=== PATIENT | female | born 1995 | race Caucasian/White ===

== ENCOUNTER 2017-12-11 17:39 | Inpatient (IN) ==
[2017-12-11] MEDS ORDERED: CALCIUM CARBONATE Chewable 500mg TABLET PO PRN (19:13)
[2017-12-11] MEDS ORDERED: ACETAMINOPHEN 500 MG TABLET PO PRN (19:13)
[2017-12-11] MEDS ORDERED: METHYLERGONOVINE 0.2 MG/ML INJECTION IM PRN (19:13)
[2017-12-11] MEDS ORDERED: MAG-AL + SIM ORAL LIQUID 30ml PO PRN (19:13)
[2017-12-11] MEDS ORDERED: CARBOPROST 250 MCG/ML INJECTION IM PRN (19:13)
[2017-12-11 19:35] VITALS: BMI 25.7
[2017-12-11] MEDS ORDERED: SALINE FLUSH 10ml SYRINGE IV PRN (20:00)
[2017-12-11] MEDS ORDERED: ZOLPIDEM 5 MG TABLET PO PRN (20:00)
[2017-12-11] MEDS ORDERED: HYDROCODONE/APAP 5mg/325mg TABLET PO PRN (20:00)
[2017-12-11] MEDS ORDERED: OXYTOCIN DRIP 30 UNIT/500 ML ML IV PRN ×2 (20:03→22:00)
[2017-12-11] MEDS ORDERED: ZOLPIDEM 10 MG TABLET PO PRN (20:05)
--- NOTE | 2017-12-11 20:08 | Progress Note ---
OB PP Progress Note Free Text - Date Date: 12/11/17 - Progress Note Progress Note: العلي bulb placed through cervix without difficulty, clear fluid return. Discussed AROM with pt, Dr Forbes notified. Cervix 50%/-3. Q&A
[2017-12-11] MEDS ORDERED: AMPICILLIN 2 GM in NS 100 ML IV ONE (21:04)
[2017-12-11] MEDS: LR 1,000 ML IV PRN (21:16)
[2017-12-11] MEDS: D5LR 1,000 ML IV PRN (22:12)
[2017-12-12] MEDS: AMPICILLIN 1 GM in NS 100 ML IV SCH ×2 (01:22→05:12)
[2017-12-12] MEDS: LR 1,000 ML IV PRN ×3 (01:23→12:45)
[2017-12-12] MEDS ORDERED: ONDANSETRON 4 MG/2 ML INJECTION IVP PRN ×2 (07:53→17:28)
[2017-12-12] MEDS ORDERED: NALOXONE 0.4 MG/ML INJECTION IVP PRN (07:53)
[2017-12-12] MEDS ORDERED: ROPIVACAINE 1% 10MG/ML INJ 200 MG, SUFentanil 50 MCG in NS 100 ML EPI PRN (07:53)
[2017-12-12] MEDS ORDERED: DiphenhydrAMINE 50 MG/ML INJECTION IVP PRN (07:53)
--- NOTE | 2017-12-12 07:53 | Anesthesia Preoperative Report ---
Anesthesia Epidural/Spinal Rec - Date and Time Date: 12/12/17 Preoperative Diagnosis: preeclampsia Procedure: Labor Epidural Plan: Epidural - Vital Signs Vital Signs: Temperature 98.2 F 12/11/17 19:12 Pulse Rate 114 H 12/11/17 19:12 Respiratory Rate 20 12/11/17 19:12 Blood Pressure 136/91 H 12/11/17 19:12 Pulse Oximetry 99 12/11/17 19:12 /Para: P:0 - Medictaions & Allergies Inpatient Medications: Current Medications Acetaminophen (Tylenol) 500 - 1,000 mg PO Q4H PRN PRN Reason: Pain Hydrocodone Bitart/Acetaminophen (Seffner 5/325) 1 - 2 tab PO Q4H PRN PRN Reason: Pain Al Hydroxide/Mg Hydroxide (Maalox Plus) 30 ml PO Q3H PRN PRN Reason: Indigestion Calcium Carbonate (Tums) 500 - 1,000 mg PO Q2H PRN PRN Reason: Indigestion Carboprost Tromethamine (Hemabate) 250 mcg IM O PRN PRN Reason: .Downtime Lactated Ringer's (Lactated Ringers) 1,000 mls @ 999 mls/hr IV .Q1H1M PRN Last Admin: 12/12/17 06:55 Dose: 999 mls/hr Dextrose/Lactated Ringer's (Dextrose 5%-Lactated Ringers) 1,000 mls @ 125 mls/ hr IV .Q8H PRN PRN Reason: Labor Last Admin: 12/11/17 22:12 Dose: 125 mls/hr Ampicillin Sodium 1 gm/ Sodium (Chloride) 100 mls @ 200 mls/hr IV Q4H EMILI Last Admin: 12/12/17 05:12 Dose: 200 mls/hr Oxytocin (Pitocin Drip) 30 unit in 500 mls @ 2 mls/hr IV .Q24H PRN; Protocol PRN Reason: Induction/Augmentation Last Admin: 12/11/17 22:11 Dose: 2 mls/hr Methylergonovine Maleate (Methergine) 0.2 mg IM O PRN Misoprostol (Cytotec) 800 mcg VA ONCE PRN Sodium Chloride (Iv Flush) 10 - 80 ml IV PRN PRN PRN Reason: Flushing Zolpidem Tartrate (Ambien) 10 mg PO HS PRN PRN Reason: Insomnia Allergies/Adverse Reactions: Allergies Allergy/AdvReac Type Severity Reaction Status Date / Time No Known Allergies Allergy Unverified 12/30/11 16:51 - Home Medications Home Medications: Home Medications Medication Instructions Recorded Confirmed Type No Known Medications #0 12/30/11 History - Medical History Other History: Reports: Now - Surgical History Anesthesia Reactions: None Hx Family Anesthesia Reaction: No History of Motion Sickness: No - Social History Smoking Status: Never smoker Second Hand Exposure: No Substance Use Type: does not use Alcohol Intake Frequency: does not drink - Pertinent Findings Lab Data: CBC and BMP 12/11/17 19:29 12/11/17 19:29 BMP 12/11/17 19:29 Sodium 138 Potassium 3.7 Chloride 105 Carbon Dioxide 21 L BUN 9.0 Creatinine 0.5 L Glucose 100 Calcium 10.0 Liver Function 12/11/17 Range/Units 19:29 Total Bilirubin 0.80 (0.20-1.30) MG/DL AST 25 (14-36) U/L ALT 14 (1-35) U/L Alkaline Phosphatase 202 H (38-126) U/L Albumin 4.2 (3.5-5.0) g/dL EKG Rhythm: Normal Sinus Rhythm - Physical Exam Respiratory Exam: lungs clear Cardiovascular Exam: regular rate and rhythm - Airway Assessment Mallampati Score: II TMD: 3 Fingerbreadths Neck Extension: good Overall Assessment: no airway concerns - ASA ASA Score: 2 - Discussion Discussion: Discussed risks/options/alternatives of anesthesia and questions answered. Patient consents. Nursing pain assessment noted. Anesthesia Discussion: spouse Attestation Statement: Prior to the delivery of any anesthetic medication, I examined the patient, developed the plan, obtained the patient's consent and discussed the risk and benefits of the procedure with the patient/guardian.
[2017-12-12] MEDS: D5LR 1,000 ML IV PRN (08:23)
--- NOTE | 2017-12-12 12:40 | OB/GYN Progress Note ---
- Pain Control Pain control: Epidural - Pelvic Exam Dilation (cm): 4 Effacement (%): 60 station: -4 Amniotic membrane status: Ruptured Comments: Has been 4-5 cm since FB was removed. - Contractions Monitor mode: Internal Contraction pattern: Regular Contraction intensity: Moderate - Status status: Category ll Comments: Recurrent variable decelerations. Amnioinfusion started with resolution of variables with every contractions. - Assessment and Plan Assessment: induction ongoing Plan: continuous present management (Discussed Variables and cat 2 FHT will attempt to resolve and increase MVUs to move to delivery. Discussed if Cat 2 strip continues will proceed with PLTCS. Discussed R/B/A to procedure, questions elicted and answered. )
[2017-12-12] MEDS ORDERED: AZITHROMYCIN IV 500 MG in NS 250ml 250 ML IV ONE (12:49)
[2017-12-12] MEDS ORDERED: CITRIC ACID/SODIUM CITRATE 30ml PO ONE (12:49)
[2017-12-12] MEDS ORDERED: FAMOTIDINE PB 20 MG/50 ML BAG IV ONE (12:49)
[2017-12-12] MEDS ORDERED: CEFAZOLIN PREMIX (MC ONLY) 2 GM/50 ML BAG IV ONE (12:49)
[2017-12-12] MEDS ORDERED: NS 1,000 ML IR ONE (13:00)
[2017-12-12] MEDS ORDERED: SALINE FLUSH 10ml SYRINGE ONE (13:00)
[2017-12-12] MEDS ORDERED: PHENYLEPHRINE INJ 10 MG/ML VIAL IV ONE (13:00)
[2017-12-12] MEDS ORDERED: ONDANSETRON 4 MG/2 ML INJECTION ONE (13:01)
[2017-12-12] MEDS ORDERED: MORPHINE SULFATE PF 5mg/10ml INJ (Duramorph) ONE (13:33)
[2017-12-12] MEDS ORDERED: FentaNYL 250 MCG/5 ML INJECTION ONE (13:35)
[2017-12-12] MEDS ORDERED: BUPIVACAINE 0.75%/DEXTROSE 8.5% SPINAL 2 ML AMPULE IJ ONE (13:36)
[2017-12-12] MEDS: OXYTOCIN BOLUS BAG 30 UNIT/500 ML ML IV SCH ×2 (14:02→14:29)
[2017-12-12] MEDS ORDERED: SALINE FLUSH 10ml SYRINGE IV PRN (17:25)
[2017-12-12] MEDS ORDERED: CALCIUM CARBONATE Chewable 500mg TABLET PO PRN (17:25)
[2017-12-12] MEDS ORDERED: HYDROCORTISONE 2.5% CREAM 30gm RECTALLY PRN (17:25)
[2017-12-12] MEDS ORDERED: DiphenhydrAMINE 25 MG CAPSULE PO PRN (17:25)
[2017-12-12] MEDS ORDERED: ACETAMINOPHEN 500 MG TABLET PO PRN (17:25)
[2017-12-12] MEDS ORDERED: SIMETHICONE 80 MG CHEWABLE TABLET PO PRN (17:25)
[2017-12-12] MEDS ORDERED: D5LR 1,000 ML IV SCH (17:30)
[2017-12-12] MEDS ORDERED: OXYTOCIN DRIP 30 UNIT/500 ML ML IV SCH (17:30)
--- NOTE | 2017-12-12 18:03 | Anesthesia Postoperative Note ---
- Date and Time Date: 12/12/17 Time: 18:02 - Status Patient Participated in Evaluation: Patient Participated in Person Vital Signs: Temperature 98.2 F 12/11/17 19:12 Pulse Rate 114 H 12/11/17 19:12 Respiratory Rate 20 12/11/17 19:12 Blood Pressure 136/91 H 12/11/17 19:12 Pulse Oximetry 99 12/11/17 19:12 Respiratory Function: Airway Patent Cardiovascular Function: Regular Pulse Mental Status: Alert and Oriented Pain Intensity: 0 Hydration: Taking PO Fluids Complications During Recover: None Apparent - Follow-Up Instructions Instructions: Per Surgeon
--- NOTE | 2017-12-12 18:16 | Operative Note ---
Operative Note - Date of Operation Date of Operation: 12/12/17 - General : 1 Estimated or Known Gestational Age (weeks): 37 - Preoperative Diagnosis Nonreassuring FHT (Recuurent variable decelerations), Gestational Hypertension ( Preeclampsia) - Postoperative Diagnosis Postoperative Diagnosis: Same - Procedure Primary, Low-transverse - Surgeon Surgeon: Micheal Forbes DO - Day Care Assistant OB Day Care Assistant: Federica Araujo MD - Anesthesia Anesthesia Provider: Juan C Newman CRNA Anesthesia Type: Combined Spinal/Epidural - Estimated Blood Loss Estimated Blood Loss:: 700 - Findings Findings: viable female (Pam) - APGARS : 9 - [place] Weight Weight (grams): 3002 - Indications Indications: Nonreasuring FHT - Description of Procedure Description of Procedure: See dictation
[2017-12-12] MEDS: IBUPROFEN 800 MG TABLET PO PRN (18:57)
[2017-12-12] MEDS: SIMETHICONE 80 MG CHEWABLE TABLET PO SCH ×2 (18:57→23:25)
[2017-12-12] MEDS: HYDROCODONE/APAP 5mg/325mg TABLET PO PRN (22:42)
[2017-12-13] MEDS: IBUPROFEN 800 MG TABLET PO PRN ×3 (05:23→21:45)
[2017-12-13] MEDS: HYDROCODONE/APAP 5mg/325mg TABLET PO PRN ×5 (05:23→21:46)
[2017-12-13] MEDS: DOCUSATE CALCIUM 240 MG CAPSULE PO SCH (08:20)
[2017-12-13] MEDS: SIMETHICONE 80 MG CHEWABLE TABLET PO SCH ×5 (08:20→21:46)
[2017-12-13] MEDS: AMPICILLIN 1 GM in NS 100 ML IV SCH (08:50)
--- NOTE | 2017-12-13 09:03 | OB/GYN Progress Note ---
OB-PP Progress Note - General PPD1 POD:: POD1 Maternal Group B Strep: Positive Maternal blood type: A- Maternal Rubella Status: Immune - Subjective Date: 12/13/17 Lochia: Minimal Pain: controlled Voiding: voiding - Objective Vital Signs: Last Vital Signs Temp 97.6 F 12/13/17 08:00 Pulse 86 12/13/17 08:00 Resp 16 12/13/17 08:00 BP 124/81 12/13/17 08:00 Pulse Ox 98 12/13/17 08:00 Urine Output: good General: alert and oriented Cardiovascular: regular rate,rhythm Respiratory: non-labored Abdomen: fundus firm Incision: normal, clean, dry, intact Extremities: non-tender Laboratory: Laboratory Results - last 24 hr 12/12/17 12/12/17 14:37 20:47 WBC 11.1 H D RBC 4.18 Hgb 11.9 L Hct 35.9 L MCV 85.9 MCH 28.5 MCHC 33.1 RDW Std Deviation 51.0 H Plt Count 214 MPV 10.1 Immature Gran % (Auto) 0.4 Neut % (Auto) 73.5 H Lymph % (Auto) 15.9 L Pettis % (Auto) 10.0 H Eos % (Auto) 0.1 Baso % (Auto) 0.1 Neut # (Auto) 8.2 H Lymph # (Auto) 1.8 Pettis # (Auto) 1.1 H Eos # (Auto) 0.0 Baso # (Auto) 0.0 Abs Immat Gran (auto) 0.04 H RhIG Candidate? Not a candidate - Assessment Assessment: SP, Primary C/S, Preeclampsia - Plan Plan: routine care
[2017-12-14 01:02] VITALS: RESP 16
[2017-12-14] MEDS: HYDROCODONE/APAP 5mg/325mg TABLET PO PRN ×2 (04:59→10:46)
--- NOTE | 2017-12-14 08:43 | OB/GYN Progress Note ---
OB-PP Progress Note - General PPD2 Maternal Group B Strep: Positive Maternal blood type: A- Maternal Rubella Status: Immune - Subjective Date: 12/14/17 Lochia: Minimal Pain: controlled Voiding: voiding - Objective Vital Signs: Last Vital Signs Temp 98.1 F 12/14/17 04:50 Pulse 75 12/14/17 04:50 Resp 16 12/14/17 04:50 BP 123/63 12/14/17 04:50 Pulse Ox 98 12/14/17 04:50 General: alert and oriented Abdomen: fundus firm, non-tender Incision: normal, clean, dry, intact Extremities: non-tender - Assessment Assessment: Primary C/S, Preeclampsia - Plan Plan: routine care, discharge home, continue PNV
[2017-12-14] MEDS: DOCUSATE CALCIUM 240 MG CAPSULE PO SCH (10:41)
[2017-12-14] MEDS: SIMETHICONE 80 MG CHEWABLE TABLET PO SCH (10:42)
[2017-12-14] MEDS: IBUPROFEN 800 MG TABLET PO PRN (10:42)
[2017-12-14 13:37] VITALS: BP 125/79; PULSE 80; TEMP 97.7; O2SAT 97
--- NOTE | 2017-12-14 14:14 | Anesthesia Postoperative Note ---
- Date and Time Date: 12/14/17 Time: 14:05 - Status Patient Participated in Evaluation: Patient Participated in Person Vital Signs: Temperature 97.7 F 12/14/17 13:00 Pulse Rate 80 12/14/17 13:00 Respiratory Rate 16 12/14/17 13:00 Blood Pressure 125/79 12/14/17 13:00 Pulse Oximetry 97 12/14/17 13:00 Respiratory Function: Airway Patent Cardiovascular Function: Regular Pulse Mental Status: Alert and Oriented Pain Intensity: 3 Hydration: Taking PO Fluids Complications During Recover: None Apparent Post Anesthesia Care Notes: Patient will be discharged today per Dr. Araujo. Pt does complain of headache when standing that subsides once she returns to supine position. Currently she is setting up in bed during assessment. She denies N/V or sensitivity to light. Pt did have epidural for labor placed with 17 gauge needle without difficulty and SAB for c section later that day done with 22 gauge needle. Discussed with patient and possible post dural puncture headache along with conservative and blood patch treatment. Pt refuses blood patch at this time. She also verbalized her understanding stay orally hydrated, increase caffeine intake and to rest once home. - Follow-Up Instructions Instructions: Per Surgeon
--- NOTE | 2017-12-19 15:10 | Operative Note ---
DATE OF OPERATION 12/12/2017 PREOPERATIVE DIAGNOSES 1. Mild preeclampsia, term. 2. Failed induction of labor. 3. Nonreassuring heart tones, recurrent variable decelerations. POSTOPERATIVE DIAGNOSES 1. Mild preeclampsia, term. 2. Failed induction of labor. 3. Nonreassuring heart tones, recurrent variable decelerations. PROCEDURE Primary low transverse section. SURGEON Micheal Forbes DO PEWTER FAB[employer]ICATOR Federica Araujo MD HEAD OF SCIENCE Juan C Newman CRNA ANESTHESIA TYPE Combined spinal/epidural ESTIMATED BLOOD LOSS 700 mL FINDINGS Viable female , Apgars were 2/4/9. Weight was 3002 grams. INDICATIONS Nonreassuring heart tones, category 2 strip with moderate variability but recurrent variable decelerations, remote from delivery. DESCRIPTION OF PROCEDURE Patient was taken to the operating room where spinal/epidural anesthesia was obtained without difficulty. She was then prepped and draped in the dorsal supine position with a leftward tilt. Pfannenstiel skin incision was made with a scalpel and carried through to underlying layers of the fascia. The fascia was then incised in the midline. The fascial incision was extended laterally with the Diehl scissors. Superior aspect of the fascial incision was grasped with a Misti clamp, elevated, and rectus muscles dissected off bluntly and sharply with the Diehl scissors. Attention was turned to the inferior aspect of the fascial incision which was grasped with the Misti clamp, elevated, and dissected off sharply with the Diehl scissors. The rectus muscles were in the midline and the peritoneum was entered bluntly. Peritoneal incision was then extended superiorly and inferiorly with good visualization of the bladder. The bladder blade was inserted and the vesicouterine peritoneum was grasped with the pick-ups, entered sharply with the Metzenbaum scissors and extended laterally. The bladder flap was created digitally and the bladder blade was then reinserted. The uterine incision was then made in a transverse fashion. The uterine incision was then extended with cephalad and caudad motion. The infant's head was then delivered atraumatically followed by the body. Cord was clamped and cut and the was taken to the food order delivery runner who was waiting. At this time, the placenta was expressed. The uterus was cleared of all clots and debris and the uterus was exteriorized. Again the uterus was cleared of all clots and debris and the uterine incision was repaired with 0 Monocryl in a running locked fashion. The second layer of the same suture was used in imbricating fashion to obtain excellent hemostasis. The bladder flap was then repaired with 2-0 Monocryl. Once excellent hemostasis was assured, the posterior cul-de-sac was removed of all clots and debris and the uterus was returned to the abdomen. The gutters were cleared of all clots and debris and inspected was performed and excellent hemostasis was noted. The peritoneal incision was then closed with 2-0 Monocryl in a running fashion. The rectus muscles were reapproximated in the midline with 2-0 Monocryl in a running fashion. The fascia was closed with 0 Vicryl in a running fashion and the skin was closed with 4-0 Monocryl and Dermabond. Patient tolerated the procedure well. Sponge, lap and needle counts were correct x2 and patient was taken to the recovery room in stable condition. MOI
== END 2017-12-14 14:09 | disposition home or self-care (01) | DRG 766 ==
LOC: MC 19:08 → EDSTATUS 12-31 17:26
PROVIDERS: ADMIT Obstetrics & Gynecology; ATTEND Obstetrics & Gynecology